=== PATIENT | female | born 1975 | race Caucasian/White ===

== ENCOUNTER 2016-08-27 13:55 | Emergency (ER) | payer SELFPAY ==
[~2016-08-27] VITALS: Ht 165.1 cm; Wt 68.7 kg
[2016-08-27 13:58] VITALS: Ht 165.1 cm; Wt 68.7 kg
--- NOTE | 2016-08-27 13:58 | NUR ---
ROOM AMBULATORY TO ROOM
[2016-08-27] MEDS ORDERED: LEVO200T3 PO (14:09)
--- NOTE | 2016-08-27 14:09 | ERPDOC ---
Departure Disposition Decision Date: Aug 27, 2016 Disposition Decision Time: 14:12 Disposition: 01 DISCHARGED HOME, SELF-CARE Impression Impression Impression: Primary Impression: Encounter for medication refill Additional Impressions: Graves disease Hypothyroidism, secondary Severity: Moderate Condition: Stable Seen By: Physician only Referrals: [facility] Follow-up for further evaluation and prescribing Patient Instructions: Graves Disease (ED) Problems/Meds/Labs Reviewed?: Yes Medications reviewed and manag: Yes Follow up care ordered?: Yes Mental Status: Alert, Oriented Scripts Levothyroxine Sodium (Levothyroxine Sodium) 200 Mcg Tablet 1 TAB PO DAILY, #30 TAB 0 Refills Prov: CUCA PERRIN MD 08/27/16 HPI - General Medical General Chief Complaint: General Stated Complaint: GRAVES DISEASE Time Seen by Provider: 14:09 Source: patient Exam Limitations: no limitations HPI - General Medical Initial Comments Patient is a 41-year-old female, currently visiting from [place]. Patient is hypothyroid secondary to treatment for Graves' disease, normally takes 200 g of levothyroxine daily. Patient has run out of her prescription, did see ER in [place] who wrote her for 1 week's pills and was told follow-up with the [facility]. [facility] unable see patient for the next month, patient is now out of her pills again presents to the ER for evaluation and refill of medication Allergies: Coded Allergies: Sulfa (Sulfonamide Antibiotics) (Verified Allergy, Severe, 08/27/16) Past History Past Medical History Metabolic: hypothyroidism (secondary to treatment for Graves' disease) Review of Systems Constitutional Constitutional: DENIES: appetite decrease, chills, dizziness, fever, weakness ENMT Sinuses: DENIES: congestion, rhinorrhea Cardiovascular Cardiac: DENIES: chest pain, dyspnea on exertion Pulmonary Respiratory: DENIES: cough, dyspnea, sputum, tachypnea GI Upper Abdomen: DENIES: nausea, pain, vomiting General: DENIES: frequency, urgency Musculoskeletal General: DENIES: cramps, pain, weakness Integumentary Skin: DENIES: color change, itching, rash Psychiatric Psychiatric: anxiety, nervousness, DENIES: depression, irritability Endocrine Endocrine: DENIES: heat/cold intolerance Hematologic/Lymphatic Hematologic/Lymphatic: DENIES: anemia, easy bruising Allergic/Immunological Allergic/Immunoligical: DENIES: sneezing Physical Exam General General Nourishment: well nourished, well developed General Body Habitus: well groomed Vitals and Pain First Documented Vital Signs Date Time Temp Pulse Resp B/P Pulse Ox O2 Delivery O2 Flow Rate FiO2 08/27/16 13:58 98.2 97 16 132/89 99 Room Air Weight: Kilograms: Height (feet): Height (inches): Triage Pain Scale: RN VS reviewed by Provider: Yes Eyes (brief) Eyes Brief: found: EOMI ENMT (brief) ENMT Brief: FOUND: mucosa moist, normal dentition, NOT FOUND: nasal erythema, pharnyx erythema, tonsillar deviation Neck (brief) Neck: NOT FOUND: adenopathy, spasm, tenderness Respiratory (brief) Respiratory: FOUND: clear all [place], equal bilaterally, NOT FOUND: rales, wheezes Cardiovascular (brief) Cardiac: FOUND: regular rate, regular rhythm Capillary Refill: <2 sec Lymphatic (brief) Lymphatic Brief: NOT FOUND: adenopathy Musculoskeletal (brief) Musculoskeletal Brief: NOT FOUND: spasm, tenderness Integumentary (brief) Integumentary Brief: FOUND: dry, pink, warm, NOT FOUND: rash Neurologic (brief) Neurological Brief: FOUND: CN w/o gross def to obs, motor-no gross deficits, sensory-no gross deficits Psychiatric (brief) Psychiatric Brief: FOUND: alert, oriented Differential Diagnoses Considering: Other (hypothyroidism, anxiety) CUCA PERRIN MD Aug 27, 2016 14:09
[2016-08-27] MEDS ORDERED: LEVO200T10 PO (14:15)
[2016-08-27 14:19] VITALS: BP 132/89; PULSE 97; RESP 16; TEMP 98.2; O2SAT 99
--- NOTE | 2016-08-27 14:19 | NUR ---
DEPART VERBAL AND WRITTEN DISCHARGE INSTRUCTIONS GIVEN AND UNDERSTOOD. CONDITION STABLE. RELEASED AMBULATORY FROM ED WITH FRIEND.
== END 2016-08-27 14:19 | disposition home or self-care (01) ==
LOC: ED 13:55
DX: Z76.0 Encounter for issue of repeat prescription (principal); E03.8 Other specified hypothyroidism; E05.00 Thyrotoxicosis with diffuse goiter without thyrotoxic crisis or storm

== ENCOUNTER 2016-09-28 20:42 | Emergency (ER) | payer SELFPAY ==
[~2016-09-28] VITALS: Ht 165.1 cm; Wt 66.4 kg
[~2016-09-28 20:42] MED LIST: LEVO200T10 PO; LEVO200T3 PO
--- OUTSIDE RECORDS SUMMARY | 2016-09-28 20:45 | XMS REPORT | Continuity of Care Document ---
Demographics Preferred Language Unknown Marital Status Unknown Sikh Affiliation Unknown Race Unknown Ethnic Group Unknown Author Author [facility] Organization [facility] Address Unknown Phone Unavailable Support Name Relationship Address Phone CUCA PERRIN MD Caregiver [address] [place] [address] [place] [address] Unavailable Advance Directives Directive Response Recorded Date/Time Advanced Directives Type None 08/27/16 1:58pm Chief Complaint and Reason for Visit Chief Complaint General Reason for Visit [id number] Problems Active Problems Medical Problem Onset Date Status Graves disease Unknown Acute Medications Current Home Medications Medication Dose Units Route Directions Days Qty Instructions Start Date Levothyroxine Sodium (Synthroid) 200 Mcg Tablet 1 Tab Oral Daily 30 Tablet 08/27/16 Levothyroxine Sodium 200 Mcg Tablet 1 Tab Oral Daily 30 Tablet Social History Query Response Start Date Stop Date Smoking Status Unknown if ever smoked Hospital Discharge Instructions No hospital discharge instructions. Plan of Care Discharge Date 08/27/16 2:19pm Disposition 01 DISCHARGED HOME, SELF-CARE Condition at Discharge Stable Instructions/Education Provided Graves Disease (ED) Prescriptions See Medication Section Referrals [facility] Note: Follow-up for further evaluation and prescribing Care Plan and Goals Physician Care Plan Problem: Graves' disease posttreatment hypothyroidism Goal: Follow up with primary care provider Instructions: Take medications and follow care plan as discussed/written Functional Status No functional status results. Allergies, Adverse Reactions, Alerts Allergen Type Severity Reaction Status Last Updated Sulfa (Sulfonamide Antibiotics) Allergy Severe Active 08/27/16 Immunizations No immunization records. Vital Signs Acute Vital Signs Vital Response Date/Time Temperature (Fahrenheit) 98.2 deg F (96.8 - 99.1) 08/27/2016 2:19pm Temperature (Calculated Celsius) 36.25233 degrees C (36.0 - 37.3) 08/27/2016 2:19pm Pulse Rate (adult) 97 bpm (60 - 100) 08/27/2016 2:19pm Respiratory Rate 16 breaths/min (10 - 20) 08/27/2016 2:19pm O2 Sat by Pulse Oximetry 99 % (90 - 100) 08/27/2016 2:19pm Blood Pressure 132/89 mm Hg 08/27/2016 2:19pm Height (Feet) 5 feet 08/27/2016 1:58pm Height (Inches) 5.00 inches 08/27/2016 1:58pm Weight (Kilograms) 68.700 kg 08/27/2016 1:58pm Body Mass Index (BMI) 25.0 08/27/2016 1:58pm Results No known relevant diagnostic tests, laboratory data and/or discharge summary. Procedures No known history of procedures. Encounters Encounter Location Arrival/Admit Date Discharge/Depart Date Attending Provider Departed Emergency Room [facility] 08/27/16 1:55pm 08/27/16 2: 19pm CUCA PERRIN MD Recent Diagnosis
[2016-09-28 20:58] VITALS: Ht 165.1 cm; Wt 66.4 kg
--- NOTE | 2016-09-28 20:58 | NUR ---
PT BEHAVIOR TO LOBBY TO RETRIEVE PT AT THIS TIME. PT REQUESTED TO GO GET ICE FROM THE [facility] PRIOR TO COMING BACK TO THE ED. TOLD PT THAT SHE COULD GET ICE FROM THE [facility], HOWEVER, OTHER PTS WOULD BE BROUGHT BACK IN THE MEAN TIME. PT BEGAN GETTING AGITATED - INFORMED PT THAT THERE WAS ICE IN THE ED AND I WOULD BE SURE TO ASK THE DOCTOR IF ICE WOULD BE OK. PT THEN DEMANDED I GET HER ICE. AGAIN, INFORMED PT THAT I WOULD NEED TO SPEAK TO THE DR. PT STATED 'IT'S NOT LIKE I'M GOING TO HAVE SURGERY SO YOU NEED TO GO GET ME ICE'. DR NOTIFIED.
[2016-09-28] MEDS ORDERED: LEVO200T10 PO (21:06)
--- NOTE | 2016-09-28 21:25 | ERPDOC ---
Departure Disposition Decision Date: September 28, 2016 Disposition Decision Time: 22:13 Disposition: 01 DISCHARGED HOME, SELF-CARE Impression Impression Impression: Primary Impression: Hypothyroidism, secondary Additional Impressions: Graves disease Encounter for medication refill Severity: Moderate Condition: Stable Seen By: Physician only Referrals: [facility] 1 Week Patient Instructions: Hypothyroidism (ED) Problems/Meds/Labs Reviewed?: Yes Medications reviewed and manag: Yes Additional Instructions: Your thyoid level is low. Take the synthroid as prescribed. Follow up with a local physician to monitor your response to the medication. Follow up care ordered?: Yes Mental Status: Alert, Oriented Scripts Levothyroxine Sodium (Synthroid) 200 Mcg Tablet 1 TAB PO DAILY, #30 TAB 5 Refills Prov: SEPTEMBERANKIT DO 09/28/16 HPI - General Medical General Chief Complaint: General Stated Complaint: THYROID ISSUES Time Seen by Provider: 21:05 Source: patient Exam Limitations: no limitations HPI - General Medical Initial Comments 41yo woman presents to the ER tonight for refill of her synthroid. Pt recently split from her BF?; has not been able to get her synthroid from him. Presents tonight demanding a refill of 200mcg synthroid and to be discharged. Pt states that she has been out of her medication for the last 3+ weeks. Her last Rx was from this ER, and from a clinic in [place] prior to that. Occurred At: home Severity: moderate Modifying Factors: IMPROVES WITH: medication Associated Symptoms: malaise Hx of Similar Symptoms: Yes Allergies: Coded Allergies: Sulfa (Sulfonamide Antibiotics) (Verified Allergy, Severe, 09/28/16) Past History Patient Medical History (1) Graves disease (2) Hypothyroidism, secondary (3) Encounter for medication refill Past Medical History Metabolic: hypothyroidism Review of Systems Endocrine Endocrine: heat/cold intolerance All other Systems All Other Systems: Reviewed and Negative Physical Exam General General Nourishment: well nourished, well developed, appears stated age, no acute distress, adult General Body Habitus: well groomed Vitals and Pain First Documented Vital Signs Date Time Temp Pulse Resp B/P Pulse Ox O2 Delivery O2 Flow Rate FiO2 09/28/16 20:58 98.1 98 22 156/98 100 Room Air Weight: Kilograms: 66.400 Height (feet): 5 Height (inches): 5.00 Triage Pain Scale: RN VS reviewed by Provider: Yes Normal Exams: Head: Normocephalic w/o trauma Eyes: Pupils are PERRLA w/ EOMI, No scleral icterus, irritation ENMT: No facial trauma, nasal exudates, pharyngeal erythema Neck: Full range of motion, without adenopathy, JVD Chest/Resp: Clear all og[place], with good airflow, and symmetry bilaterally CV: Regular rate and rhythm, without murmur or gallop, Pulses 2+ all extremities Lymphatic: No lymphadenopathy Musculoskeletal: No tenderness, or deformity noted Integumentary: No rashes, hives, or bruising noted Neurologic: Patient is alert, and oriented Psychiatric (brief) Psychiatric Brief: FOUND: alert, oriented, NOT FOUND: normal affect ( Belligerent, entitled, demanding) Differential Diagnoses Considering: Other (Graves disease, hypothyroid, factitious hyperthyroid, intentional overdose) Progress Results/Orders Orders Procedure Category Date Status Time Tsh - Thyroid Stim LAB 09/28/16 Complete Hormone Lab Results Laboratory Tests Test 09/28/16 21:20 Thyroid Stimulating Hormone (TSH) 29.20MIU/L Progress Progress 41yo woman with entitled, demanding, belligerent demeanor presenting to the ER for routine medication refill, of a medication which she has not been taking for several weeks? When pt was called from the lobby, she informed the NRS that NRS would have to wait while pt retrieved something from her car and got ice from the cafeteria. When pt was told that she could then wait longer, she became abusive towards the NRS. While in the ER, pt demanded that NRS bring her ice and other amenities while she waited. When physician came to examine pt, pt demanded synthroid rx without exam or labwork. When informed that she would not receive an rx without evidence of secondary hypothyroidism, pt became manipulative and demanding. She attempted to receive a 7-day supply, then just a few tablets with a release. She used an excuse of a friend waiting on her in the lobby to justify her haste. After being informed that a synthroid rx in a euthyroid pt was dangerous, pt informed physician that she had never had to have a TSH prior to getting an rx previously. She then stated that there was an 'identity issue' and that drawing a TSH could threaten pts life. Pt threatened to leave AMA if she had to have a lab drawn. Physician held firm and pt will have lab drawn. High concern that if pt has been receiving synthroid through ER, without appropriate f/u and TSH monitoring that she could be taking medication factitiously to attempt wt loss or for some other reason. Pts demeanor is highly suggestive of an undiagnosed personality disorder or untreated primary psychiatric d/o. Pts TSH returned grossly elevated (29+). When the physician and the nurse went to discuss pts findings and give her her rx, pt launched into a long tirade regarding issues of her identity, grave's disease, and legal issues that was full of loose associations, pressured speech, tangential thoughts, obvious delusions, and paranoia. Strong suspicion for underlying schizophrenia, manic bipolar, or methamphetamine abuse. ANKIT DEVLIN DO September 28, 2016 21:25
[2016-09-28] MEDS ORDERED: LEVO200T3 PO (22:15)
[2016-09-28 22:20] VITALS: BP 166/94; PULSE 92; RESP 22; TEMP 98.1; O2SAT 100
--- NOTE | 2016-09-28 22:20 | NUR ---
DEPART PT GIVEN DI FOR HYPOTHROIDISM, LEVOTHYROXINE, F/U. RX PROVIDED FOR LEVOTHYROXINE. PT APPEARED AGITATED AND PARANOID, CITING ISSUES WITH STOLEN IDENTY, LABS HERE COULD GET HER KILLED, AND LIVING ARRANGEMENTS INCLUDING THE POLICE DEPARTMENT.
== END 2016-09-28 22:20 | disposition home or self-care (01) ==
LOC: ED 20:42
DX: Z76.0 Encounter for issue of repeat prescription (principal); E03.8 Other specified hypothyroidism; E05.00 Thyrotoxicosis with diffuse goiter without thyrotoxic crisis or storm
CPT/HCPCS: 36415; 84443